=== PATIENT | female | born 1995 | race Caucasian/White ===

== ENCOUNTER 2018-04-06 03:42 | Emergency (ER) | payer OTHER ==
[~2018-04-06 03:42] MED LIST: CEPH500C24 PO; ESTR1POW41 MC; NITR-105 PO; OMEP-125 PO; SERT-1 PO; SERT20OR6 PO
--- NOTE | 2018-04-06 03:45 | ER Report ---
History and Physical Time Seen By MD: 03:44 HPI/ROS CHIEF COMPLAINT: Chest pain HISTORY OF PRESENT ILLNESS: 22-year-old female woke up with chest discomfort and difficulty breathing. She noted palpitations in her chest. She notes chest tightness without radiation to her arms, neck or back. She has nausea. He reports having diarrhea all day yesterday. She's had no fever. She denies recent travel exposure to ill contacts or consumption of bad food. Patient notes mild nausea. She's had no vomiting. Patient has some previous ER visits for anxiety noted. Patient notes bilateral hand numbness. REVIEW OF SYSTEMS: Respiratory: No cough, no dyspnea. Cardiovascular: As above Gastrointestinal: No vomiting, no abdominal pain. Musculoskeletal: No back pain. Allergies: Coded Allergies: Penicillins (Verified Allergy, Intermediate, 04/06/18) hives amoxicillin (Verified Allergy, Mild, 04/06/18) hives Home Meds Reported Medications Estradiol Hemihydrt,Micronized (ESTRADIOL) 1 Gm Powder, 1 GM MC 10/08/17 Omeprazole (OMEPRAZOLE) 20 Mg Capsule.dr, 1 CAP PO BID, CAP 10/08/17 Discontinued Reported Medications Sertraline Hcl (ZOLOFT) 50 Mg Tablet, 1 TAB PO QDAY, TAB 10/08/17 Sertraline Hcl (ZOLOFT) 20 Mg/1 Ml Oral.conc, 20 MG PO 10/08/17 Nitrofurantoin Monohyd/M-Cryst (MACROBID 100 MG CAPSULE) 100 Mg Capsule, 100 MG PO Y for BID, CAPSULE 10/08/17 Discontinued Scripts Cephalexin Monohydrate (CEPHALEXIN) 500 Mg Cap, 500 MG PO TID for infection, # 20 CAP TAKE 1 CAPSULE BY MOUTH EVERY SIX HOURS Prov:MIKAL COLLINS DO 10/08/17 Past Medical/Surgical History Anxiety Reviewed Nurses Notes: Yes Old Medical Records Reviewed: Yes Hx Alcohol Use: Yes Constitutional Vital Sign - Last 24 Hours 04/06/18 04/06/18 04/06/18 04/06/18 03:45 03:45 03:57 04:00 Temp 98.0 Pulse 138 118 Resp 24 37 B/P (MAP) 143/106 (118) 143/106 146/91 (109) Pulse Ox 98 O2 Delivery Room Air 04/06/18 04/06/18 04/06/18 04/06/18 04:12 04:32 04:45 04:47 Pulse 109 ??? 107 112 Resp 24 19 17 B/P (MAP) 124/83 (97) 122/80 (94) Pulse Ox 95 04/06/18 05:15 Pulse 80 Resp 14 B/P (MAP) 114/81 (92) Pulse Ox 96 O2 Delivery Room Air Physical Exam General Appearance: The patient is alert, has no immediate need for airway protection and no current signs of toxicity. Vital signs stable, tachycardic to 138, afebrile HEENT: Pupils equal and round no injection. TMs normal, oropharynx without redness or exudate Respiratory: Chest is non tender, lungs are clear to auscultation. No chest wall tenderness Cardiac: regular rate and rhythm Gastrointestinal: Abdomen is soft and non tender, no masses, bowel sounds normal. Musculoskeletal: Neck: Neck is supple and non tender. Extremities have full range of motion and are non tender., No edema Skin: No rashes or lesions. DIFFERENTIAL DIAGNOSIS: After history and physical exam differential diagnosis was considered for palpitations, chest pain, near-syncope, PE, anxiety attack Medical Decision Making Data Points Result Diagram: 04/06/1841904/06/18 042 Laboratory Hematology Test 04/06/18 04:20 Red Blood Count 5.11 M/uL (4.17-5.56) Mean Corpuscular Volume 89.5 fL (80.0-96.0) Mean Corpuscular Hemoglobin 31.3 pg (26.0-33.0) Mean Corpuscular Hemoglobin Concent 34.9 g/dL (32.0-36.0) Red Cell Distribution Width 12.3 % (11.5-14.5) Mean Platelet Volume 6.8 fL (7.2-11.1) Neutrophils (%) (Auto) 44.6 % (39.4-72.5) Lymphocytes (%) (Auto) 47.4 % (17.6-49.6) Monocytes (%) (Auto) 5.5 % (4.1-12.4) Eosinophils (%) (Auto) 1.8 % (0.4-6.7) Basophils (%) (Auto) 0.7 % (0.3-1.4) Nucleated RBC Relative Count (auto) 0.1 /100WBC Neutrophils # (Auto) 3.4 K/uL (2.0-7.4) Lymphocytes # (Auto) 3.6 K/uL (1.3-3.6) Monocytes # (Auto) 0.4 K/uL (0.3-1.0) Eosinophils # (Auto) 0.1 K/uL (0.0-0.5) Basophils # (Auto) 0.1 K/uL (0.0-0.1) Nucleated RBC Absolute Count (auto) 0.00 K/uL D-Dimer Quantitative (PE/DVT) < 0.27 ug/ml (0-0.50) Sodium Level 139 mmol/L (137-145) Potassium Level 3.6 mmol/L (3.5-5.0) Chloride Level 106 mmol/L (98-107) Carbon Dioxide Level 20 mmol/L (22-31) Blood Urea Nitrogen 12 mg/dl (7-18) Creatinine 1.00 mg/dl (0.52-1.04) Glomerular Filtration Rate Calc > 60.0 Random Glucose 92 mg/dl (75-110) Calcium Level 8.7 mg/dl (8.4-10.2) Total Bilirubin 0.4 mg/dl (0.2-1.3) Aspartate Amino Transf (AST/SGOT) 24 U/L (0-35) Alanine Aminotransferase (ALT/SGPT) 23 U/L (0-56) Alkaline Phosphatase 58 U/L (0-126) Troponin I < 0.012 ng/ml Total Protein 6.5 gm/dl (6.3-8.2) Albumin 3.6 g/dl (3.5-5.0) Human Chorionic Gonadotropin, Qual Negative (NEGATIVE) Chemistry Test 04/06/18 04:20 White Blood Count 7.7 k/uL (4.5-11.0) Red Blood Count 5.11 M/uL (4.17-5.56) Hemoglobin 16.0 g/dL (12.0-16.0) Hematocrit 45.8 % (34.0-47.0) Mean Corpuscular Volume 89.5 fL (80.0-96.0) Mean Corpuscular Hemoglobin 31.3 pg (26.0-33.0) Mean Corpuscular Hemoglobin Concent 34.9 g/dL (32.0-36.0) Red Cell Distribution Width 12.3 % (11.5-14.5) Platelet Count 209 K/uL (150-450) Mean Platelet Volume 6.8 fL (7.2-11.1) Neutrophils (%) (Auto) 44.6 % (39.4-72.5) Lymphocytes (%) (Auto) 47.4 % (17.6-49.6) Monocytes (%) (Auto) 5.5 % (4.1-12.4) Eosinophils (%) (Auto) 1.8 % (0.4-6.7) Basophils (%) (Auto) 0.7 % (0.3-1.4) Nucleated RBC Relative Count (auto) 0.1 /100WBC Neutrophils # (Auto) 3.4 K/uL (2.0-7.4) Lymphocytes # (Auto) 3.6 K/uL (1.3-3.6) Monocytes # (Auto) 0.4 K/uL (0.3-1.0) Eosinophils # (Auto) 0.1 K/uL (0.0-0.5) Basophils # (Auto) 0.1 K/uL (0.0-0.1) Nucleated RBC Absolute Count (auto) 0.00 K/uL D-Dimer Quantitative (PE/DVT) < 0.27 ug/ml (0-0.50) Glomerular Filtration Rate Calc > 60.0 Calcium Level 8.7 mg/dl (8.4-10.2) Total Bilirubin 0.4 mg/dl (0.2-1.3) Aspartate Amino Transf (AST/SGOT) 24 U/L (0-35) Alanine Aminotransferase (ALT/SGPT) 23 U/L (0-56) Alkaline Phosphatase 58 U/L (0-126) Troponin I < 0.012 ng/ml Total Protein 6.5 gm/dl (6.3-8.2) Albumin 3.6 g/dl (3.5-5.0) Human Chorionic Gonadotropin, Qual Negative (NEGATIVE) Coagulation Test 04/06/18 04:20 D-Dimer Quantitative (PE/DVT) < 0.27 ug/ml EKG/Imaging EKG Interpretation 12 lead EK Rhythm: Sinus tachycardia, rate 114 [place]: normal QRS: normal ST segments: normal, no evidence of ischemia ED Course/Re-evaluation Clinical Indication for ER IV: Hydration, IV Access ED Course Patient was admitted to an examination room. H&P was done. The differential diagnoses was considered. On clinical examination. Patient having chest tightness and a near syncopal feeling. She notes palpitations. She's been having diarrhea all day long. I suspect she is dehydrated. She woke up with palpitations, chest discomfort and feeling wonky. She described it. She's been having several episodes similar to this over the last several weeks. She denies history of cardiac dysrhythmia. Patient notes no fever or chills. She notes no blood in the diarrhea. She denies recent travel or exposure to ill contacts. Patient's treated with IV fluids, Zofran 4 mg and Ativan 1 mg.. Her EKG is unremarkable except for sinus tachycardia. Her diagnostic laboratory studies are unremarkable. Her test is negative. Her repeat vital signs at discharge are significantly improved. Her heart rate is come down from 138-80. He is resting comfortably. She is discharged home and advised to follow-up with primary care for further evaluation. She may need a Holter monitor and other specific diagnostic testing for near syncopal episodes. Decision to Disposition Date: April 06, 2018 Decision to Disposition Time: 04:24 Depart Departure Latest Vital Signs Vital Signs Date Time Temp Pulse Resp B/P (MAP) Pulse Ox O2 Delivery O2 Flow Rate FiO2 04/06/18 05:15 80 14 114/81 (92) 96 Room Air 04/06/18 03:45 98.0 Impression: Primary Impression: Anxiety attack Additional Impressions: Diarrhea Dehydration Condition: Improved Disposition: HOME OR SELF-CARE Patient Instructions: Acute Diarrhea (ED), Dehydration (ED) Additional Instructions: Drink plenty of fluids Follow-up with your primary care for further evaluation Problem Qualifiers Additional Impressions: Diarrhea Diarrhea type: unspecified type Qualified Codes: R19.7 - Diarrhea, unspecified MIKAL COLLINS DO April 06, 2018 03:45
[2018-04-06] MEDS ORDERED: NS(*) 0.9% 1000 ML BAG 1,000 ML IV ONE (03:52)
[2018-04-06] MEDS ORDERED: LORazepam 2 MG/ML VIAL IVP ONE (03:55)
[2018-04-06] MEDS ORDERED: ONDANSETRON 4 MG/2 ML VIAL IVP ONE (03:55)
[2018-04-06 04:35] LABS: PLATELET COUNT, AUTOMATED 209 K/uL (150-450)
--- NOTE | 2018-04-06 04:49 | RADIOLOGY IMAGING REPORT ---
FACILITY: [facility] - [place] PATIENT NAME: Shelby Bowden : 1995 MR: [id number] V: [id number] EXAM DATE: ORDERING PHYSICIAN: MIKAL COLLINS TECHNOLOGIST: Location: [facility] Patient: Shelby Bowden : 1995 Visit/Account:[id number] Date of Sevice: 04/06/2018 CHEST PA AND LAT History: Palpitations Comparison none. FINDINGS: Lungs are clear, no effusion. No pneumothorax. Heart size within normal limits. Mediastinal contour w ithin normal limits. IMPRESSION: No evidence of acute cardiopulmonary disease. Report Dictated By: Femi Ornelas MD at 04/06/2018 4:44 AM Report E-Signed By: Femi Ornelas MD at 04/06/2018 4:45 AM WSN:[email or web address]
--- NOTE | 2018-04-06 04:53 | EKG ---
FACILITY: [facility] PATIENT NAME: CORINNA REVELES : [id number] MR: [id number] V: [id number] EXAM DATE: ORDERING PHYSICIAN: MIKAL COLLINS TECHNOLOGIST: LARRY Tian Reason : CARDIAC Blood Pressure : / mmHG Vent. Rate : 114 BPM Atrial Rate : 114 BPM P-R Int : 152 ms QRS Dur : 088 ms QT Int : 338 ms P-R-T Axes : 052 075 028 degrees QTc Int : 465 ms Sinus tachycardia Otherwise normal ECG No previous ECGs available Confirmed by JAYANT LAUREANO ([id number]) on 04/07/2018 11:21:47 AM Referred By: Confirmed By:JAYANT LAUREANO
[2018-04-06 05:15] VITALS: BP 114/81
== END 2018-04-06 05:21 | disposition home or self-care (01) ==
LOC: ER 03:51
DX: F41.9 Anxiety disorder, unspecified (principal); R19.7 Diarrhea, unspecified; E86.0 Dehydration; R00.0 Tachycardia, unspecified
CPT/HCPCS: 36415; 71046; 84484; 84703; 85025; 85379; 93005; 96361; 96374; 96375; 99284; J2060; J2405; J7030; 82040; 82247; 82310; 82374; 82435; 82565; 82947; 84075; 84132; 84155; 84295; 84450; 84460; 84520

== ENCOUNTER → 2018-08-10 | Outpatient (CLI) | payer OTHER ==
--- NOTE | 2018-08-10 10:01 | RADIOLOGY IMAGING REPORT ---
FACILITY: [facility] [place] PATIENT NAME: Shelby Bowden : 1995 MR: [id number] V: [id number] EXAM DATE: ORDERING PHYSICIAN: MANASA CHANDRA TECHNOLOGIST: Location: [facility] [place] Patient: Shelby Bowden : 1995 Visit/Account:[id number] Date of Sevice: 08/10/2018 GALLBLADDER HISTORY: Nausea diarrhea and abdomen pain COMPARISON: None. FINDINGS: Gallbladder: Unremarkable; no stones or sludge. Liver: Negative. Common duct: Normal, 4.6 mm diameter. Pancreas: Partially obscured by bowel, visualized aspects unremarkable. Right kidney: Right kidney appears unremarkable measuring 10.5 cm in length Upper abdominal aorta and IVC: Patent. Ascites: None visualized. IMPRESSION: Unremarkable right upper quadrant ultrasound Report Dictated By: Zoe Jurado MD at 08/10/2018 9:56 AM Report E-Signed By: Zoe Jurado MD at 08/10/2018 9:57 AM WSN:[email or web address]
== END ==
LOC: US 00:52
PROVIDERS: ATTEND Nurse Practitioner Family
DX: R11.2 Nausea with vomiting, unspecified (principal); R10.9 Unspecified abdominal pain
CPT/HCPCS: 36415; 76705; 82150; 83516; 83690; 84443; 86677

== ENCOUNTER 2018-10-25 14:07 | Emergency (ER) | payer BC, OTHER ==
--- NOTE | 2018-10-25 14:26 | ER Report ---
History and Physical Time Seen By MD: 14:27 HPI/ROS CHIEF COMPLAINT: Allergic reaction HISTORY OF PRESENT ILLNESS: This is a 23-year-old female. She started having redness and itching and swelling around her eyes and face. Uncertain what this allergic reaction is 2. She did take some Benadryl, and is seems to be improving a little bit. She did have slight trouble swallowing but that seems to be improving. No shortness of breath or trouble breathing. She does have a history of hayfever. She is uncertain what is causing this current reaction. Denies any chest pain. No nausea or vomiting. No fevers or chills. She has had a little bit of a cold recently. Allergies: Coded Allergies: Penicillins (Verified Allergy, Intermediate, 10/25/18) hives amoxicillin (Verified Allergy, Mild, 10/25/18) hives sulfamethoxazole (Verified Adverse Reaction, Intermediate, vomitting, 10/25/18) trimethoprim (Verified Adverse Reaction, Intermediate, vomitting, 10/25/18) Home Meds Active Scripts Prednisone (PREDNISONE) 20 Mg Tablet, 60 MG PO QDAY, #6 TAB 0 Refills Prov:LUIS CARBALLO MD 10/25/18 Reported Medications Pantoprazole Sodium (PANTOPRAZOLE SODIUM) 40 Mg Tablet., 40 MG PO QDAY, TAB.SR 10/25/18 Discontinued Reported Medications Estradiol Hemihydrt,Micronized (ESTRADIOL) 1 Gm Powder, 1 GM MC 10/08/17 Omeprazole (OMEPRAZOLE) 20 Mg Capsule., 1 CAP PO BID, CAP 10/08/17 Reviewed Nurses Notes: Yes Hx Alcohol Use: Yes Constitutional Vital Sign - Last 24 Hours 10/25/18 10/25/18 10/25/18 10/25/18 14:21 14:22 14:30 14:37 Temp 97.8 Pulse 97 99 B/P (MAP) 132/90 (104) 132/90 127/81 (96) Pulse Ox 94 94 O2 Delivery Room Air 10/25/18 10/25/18 10/25/18 10/25/18 14:45 15:00 15:07 15:15 Pulse 90 B/P (MAP) 128/88 (101) 118/78 (91) 117/72 (87) Pulse Ox 92 10/25/18 15:30 B/P (MAP) 112/94 (100) Physical Exam General Appearance: Alert, no acute distress. Mild anxiousness. Eyes: Pupils equal and round, reactive to light, mild scleral injection. ENT: Normal oral mucosa. Moist mucous membranes. Tympanic membranes are normal. Neck: Neck is supple and non tender. Respiratory: Chest is non tender, lungs are clear to auscultation. Cardiac: regular rate and rhythm Skin: Has some redness and macular urticarial rash on the face and neck. DIFFERENTIAL DIAGNOSIS: After history and physical exam differential diagnosis was considered for allergic reaction, unknown cause Medical Decision Making ED Course/Re-evaluation ED Course Because she is improving with oral Benadryl and has no respiratory distress or difficulty swallowing at this time, elected to go ahead with oral medicines. Prednisone 60 mg oral dose, Pepcid 20 mg oral dose. On reevaluation about an hour later she is feeling much better. We will continue her on oral medicines for the next couple of days. Decision to Disposition Date: Oct 25, 2018 Decision to Disposition Time: 15:30 Depart Departure Latest Vital Signs Vital Signs Date Time Temp Pulse Resp B/P (MAP) Pulse Ox O2 Delivery O2 Flow Rate FiO2 10/25/18 15:30 112/94 (100) 10/25/18 15:07 90 92 10/25/18 14:22 97.8 Room Air Impression: Primary Impression: Allergic reaction Condition: Improved Disposition: HOME OR SELF-CARE New Scripts Prednisone (PREDNISONE) 20 Mg Tablet 60 MG PO QDAY, #6 TAB 0 Refills Prov: LUIS CARBALLO MD 10/25/18 Patient Instructions: General Allergic Reaction (ED) Additional Instructions: Take Prednisone 20mg tablets, 3 tablets once a day for 2 days. Take Zyrtec twice a day as needed for rash or itching. If needed, you can take Benadryl 25mg tablets, 1-2 every 6 hours as needed for rash or itching. Problem Qualifiers Primary Impression: Allergic reaction Encounter type: initial encounter Qualified Codes: T78.40XA - Allergy, unspecified, initial encounter LUIS CARBALLO MD Oct 25, 2018 14:27
[2018-10-25] MEDS ORDERED: PANT40TA65 PO (14:29)
[2018-10-25] MEDS ORDERED: FAMOTIDINE 20 MG TAB PO ONE (14:40)
[2018-10-25] MEDS ORDERED: predniSONE 20 MG TAB PO ONE (14:40)
[2018-10-25] MEDS ORDERED: PRED20TA6 PO (15:29)
[2018-10-25 15:30] VITALS: BP 112/94
== END 2018-10-25 15:44 | disposition home or self-care (01) ==
LOC: ER 14:34
DX: T78.40XA Allergy, unspecified, initial encounter (principal)
CPT/HCPCS: 99283; J7512